=== PATIENT | female | born 1980 | race African-American/Black ===

== ENCOUNTER 2016-07-21 20:11 | Emergency (ER) | payer SELFPAY ==
[~2016-07-21] VITALS: Ht 165.1 cm; Wt 69.4 kg
--- NOTE | 2016-07-21 21:14 | Emergency Room Report ---
History of Present Illness General Chief Complaint: Female Urogenital Problems Source: Patient Present Illness HPI Is a 36-year-old female with no past medical history. She present with chief complaint abdominal cramping and spotting. She had her menstrual flow weeks ago. Her menstrual flow is been irregular for the last couple months because she been under severe stress. Denies any fever chills denies any nausea vomiting. The demented better nothing made it worse. She checked urine a week ago and was negative. No other complaint. Pain is 8/10 point her back. No urinary complaint. Allergies: Coded Allergies: No Known Allergies (Unverified , 07/21/16) Patient History Past Medical History: none, see triage record, old chart reviewed Past Surgical History: none Pertinent Family History: none Social History: Denies: smoking Last Menstrual Period: 07/17/16 Now: No : 0 Para: 0 Immunizations: other Reviewed Nursing Documentation: PMH: Agreed, PSxH: Agreed Review of Systems Eye: Denies: blurred vision, eye pain ENT: Denies: ear pain, nose congestion, throat swelling Respiratory: Denies: cough, shortness of breath Cardiovascular: Denies: chest pain, palpitations Gastrointestinal: Denies: abdominal pain, diarrhea, nausea, vomiting Musculoskeletal: Denies: back pain, joint pain Skin: Denies: rash Neurological: Denies: headache, numbness Endocrine: Denies: increased thirst, increased urine Hematologic/Lymphatic: Denies: easy bruising All Other Systems: negative except mentioned in HPI Physical Exam Vital Signs Date Time Temp Pulse Resp B/P Pulse Ox O2 Delivery O2 Flow Rate FiO2 07/21/16 20:37 98.6 74 14 156/94 100 Room Air vitals with hypertension Sp02 EP Interpretation: reviewed, normal General Appearance: well appearing, no apparent distress, alert Head: normocephalic, atraumatic Eyes: bilateral eye EOMI, bilateral eye PERRL ENT: hearing grossly normal, normal pharynx Neck: full range of motion, supple, no meningismus Respiratory: chest non-tender, lungs clear, normal breath sounds Cardiovascular #1: regular rate, rhythm, no murmur Gastrointestinal: normal bowel sounds, non tender, no mass, no organomegaly, no bruit, non-distended Musculoskeletal: back normal, gait/station normal, normal range of motion Psychiatric: mood/affect normal Skin: warm/dry Medical Decision Making Diagnostic Impression: Primary Impression: Pelvic pain ER Course Patient present with pelvic pain and cramping. She probably beginning her menstrual flow. No evidence of UTI. Notice of STD. No evidence of ectopic. We'll discharge home to Last Vital Signs Date Time Temp Pulse Resp B/P Pulse Ox O2 Delivery O2 Flow Rate FiO2 07/21/16 20:37 98.6 74 14 156/94 100 Room Air Status: improved Disposition: HOME, SELF-CARE Condition: Stable Scripts Ibuprofen* (MOTRIN*) 600 Mg Tablet 600 MG ORAL THREE TIMES A DAY, #30 TAB 0 Refills Prov: KANU TRONCOSO M.D. 07/21/16 Referrals: NOT CHOSEN [facility]/,REFERRING (PCP) Additional Instructions: Followup with your Dr. in 7 days. Return if symptom worsen. KANU TRONCOSO M.D. Jul 21, 2016 21:14
[2016-07-21] MEDS ORDERED: Ketorolac 60mg Inj IM ONE (21:15)
[2016-07-21 22:12] LABS: APPEARANCE,URINE CLEAR; KETONES,URINE 1+ (NEGATIVE); LEUKOCYTE ESTERASE ,URINE 1+ (NEGATIVE); NITRITE,URINE NEGATIVE (NEGATIVE); PH,URINE 6 (4.5-8.0); PROTEIN,URINE 2+ (NEGATIVE); UROBILINOGEN,URINE 8 MG/DL (0.0-1.0)
[2016-07-21 22:36] LABS: AMORPHOUS SEDIMENT,UR FEW /LPF; BACTERIA,URINE FEW /HPF; ICTOTEST NEGATIVE; SQUAMOUS EPITHELIAL CELL,UR FEW /LPF (NONE/OCC); WBC,URINE 0-2 /HPF (0 - 2)
[2016-07-21] MEDS ORDERED: IBUPROFEN600 MG ORAL (22:52)
[2016-07-21 23:04] VITALS: BP 156/94
== END 2016-07-21 23:04 | disposition home or self-care (01) ==
LOC: EMR 20:55
DX: R10.2 Pelvic and perineal pain (principal)
CPT/HCPCS: 81003; 81025; 96372; 99283